=== PATIENT | male | born 1940 | race Caucasian/White ===

== ENCOUNTER → 2016-02-27 | Outpatient (CLI) | payer MEDICARE, BC ==
--- NOTE | 2016-02-27 13:07 | XR ---
Lumbar spine HISTORY: Back pain, M54.5 3 views of the lumbar spine. No comparisons Postop changes are noted in the lower lumbar spine, metallic fixation devices are present. Bone school examiner alization is reduced. Anterolisthesis grade 1 L4-5 with intervertebral spacing material. Loss of disc height greatest at L5-S1. Sclerosis present in the posterior elements compatible with facet arthropa thy. Multilevel spondylosis is present. Lumbar vertebral bodies show preserved height. There are vascular calcifications present in the aorta. IMPRESSION: Postop changes. Degenerative disc disease and facet arthropathy. Osteopenia.
== END | disposition home or self-care (01) ==
LOC: RADXRMAIN 10:32
DX: M51.36 Other intervertebral disc degeneration, lumbar region (principal); M46.96 Unspecified inflammatory spondylopathy, lumbar region; M85.88 Other specified disorders of bone density and structure, other site; Z98.890 Other specified postprocedural states
CPT/HCPCS: 72100

== ENCOUNTER → 2016-04-09 | Outpatient (CLI) | payer MEDICARE, BC ==
--- NOTE | 2016-04-10 10:16 | XR ---
EXAM TYPE: LUMBAR SPINE X RAY SERIES COMPARISON: 02/27/2016 HISTORY: Back pain TECHNIQUE: 3 views are submitted. FINDINGS: Postsurgical change appears stable. Hypertrophic changes and diffuse osteopenia noted. Grade 1 sera listhesis of L4 on L5 appears stable. Degenerative disc disease at all levels. IMPRESSION: 1. Stable postoperative change and grade 1 anterolisthesis L4 on L5. 2. Multilevel hypertrophic and degenerative changes.
== END ==
LOC: RADXRMAIN 15:49
DX: M43.16 Spondylolisthesis, lumbar region (principal); M47.816 Spondylosis without myelopathy or radiculopathy, lumbar region
CPT/HCPCS: 72100

== ENCOUNTER → 2016-05-22 | Outpatient (CLI) | payer MEDICARE, BC ==
--- NOTE | 2016-05-22 21:59 | XR ---
EXAM TYPE: LUMBAR SPINE X RAY SERIES COMPARISON: 04/09/2016 HISTORY: Pain TECHNIQUE: 7 views are submitted. Flexion and extension lateral views included. FINDINGS: Postsurgical change appears stable. Hypertrophic changes and diffuse osteopenia noted. Grade 1 sera listhesis of L4 on L5 appears stable. Degenerative disc disease at all levels. Orthopedic hardware seen posteriorly at L4 and L5 is stable in appearance should be correlated clinic ally. Degree of grade 1 anterolisthesis stable. No alteration upon flexion and extension. IMPRESSION: 1. Stable postoperative change and grade 1 anterolisthesis L4 on L5. Stable on flexion and extension. 2. Multilevel hypertrophic and degenerative changes.
== END ==
LOC: RADXRMAIN 17:44
DX: M43.16 Spondylolisthesis, lumbar region (principal); M47.816 Spondylosis without myelopathy or radiculopathy, lumbar region; Z98.890 Other specified postprocedural states
CPT/HCPCS: 72114

== ENCOUNTER → 2019-08-05 | Outpatient (CLI) | payer MEDICARE, BC ==
--- NOTE | 2019-08-05 14:35 | CT ---
EXAMINATION TYPE: CT lumbar spine wo con DATE OF EXAM: 08/05/2019 COMPARISON: Radiographs 05/22/2016 HISTORY: 79-year-old male Low back pain. TECHNIQUE: Contiguous axial scanning of the lumbar spine without IV contrast. Coronal and sagittal re constructions performed. CT DLP: 747.8 mGycm Automated exposure control for dose reduction was used. FINDINGS: Left lateral and interbody lumbar fusion at L4-L5. There is interbody ankylosis artery present at L5- S1. Lateral osseous fusion changes L4-S1 levels. There is posterior interspinous fusion at L3-L4 and additional posterior spinous fusion of L4-L5. Extruded 1 anterolisthesis at the fused L4-L5 level. Trace grade 1 retrolisthesis at L1-L2 with severe dissection of the degenerative change here, progres sed markedly from 05/22/2016. Scattered hypertrophic facet arthropathy. Posterior disc bulges also at L2-L3 and L3-L4. At L2-L3, there is mild overall narrowing of the spinal canal. At L1-L2, facet arthropathy with large disc osteophyte complex possibly causing a moderate spinal can al stenosis. Grade 1 retrolisthesis. On the right, this contributes to a severe spinal canal stenosis . Moderate multilevel neural foraminal stenoses are present. Vertebral body heights are preserved. Exophytic cortical lesion posterior left kidney measuring 2.0 cm is indeterminate, possible mildly co mplicated cyst. A 2.0 cm parapelvic cyst in left kidney. Postsurgical changes at the GE junction. Suspect chronic scarring at the posterior left base. Sigmoid diverticulosis. Some type of well-defined lobulated, peripherally calcified density in the anterior upper pelvis nicky uring 4.2 x 2.6 cm. Possible postinflammatory sequela or retained foreign body. Degenerative bridging ankylosis across the SI joints. IMPRESSION: 1. PRIOR LEFT LATERAL AND INTERBODY FUSION AT L4-L5 WELL POSTERIOR SPINOUS PROCESS FUSION FROM L3 THROUGH L5 LEVELS. MATURE LATERAL OSSEOUS FUSION FROM L4-S1 LEVELS. 2. FIXED GRADE 1 ANTEROLISTHESIS AT L4-L5. 3. ADVANCED DEGENERATIVE DISC DISEASE AT L1-L2, PROGRESSED FROM 2017 NOW WITH GRADE 1 RETROLISTHESIS AND POSSIBLE MODERATE SPINAL CANAL STENOSIS HERE. SEVERE RIGHT-SIDED NEURAL FORAMINAL STENOSIS AT THI S LEVEL. 4. POSTERIOR BULGING DISKS AT MULTIPLE LEVELS. THIS MILDLY NARROWS THE SPINAL CANAL AT L3-L4. 5. MODERATE MULTILEVEL NEUROFORAMINAL STENOSES. 6. SIGMOID DIVERTICULOSIS. A 4.2 X 2.6 CM WELL-DEFINED LOBULATED CALCIFIED DENSITY IN THE ANTERIOR UP PER PELVIS, POSSIBLE POSTINFLAMMATORY SEQUELA OR RETAINED FOREIGN BODY. CLINICALLY CORRELATE.
== END | disposition home or self-care (01) ==
LOC: RADCTMAIN 12:55
PROVIDERS: ATTEND Family Medicine
DX: M48.061 Spinal stenosis, lumbar region without neurogenic claudication (principal); M51.26 Other intervertebral disc displacement, lumbar region; M43.16 Spondylolisthesis, lumbar region; M51.36 Other intervertebral disc degeneration, lumbar region
CPT/HCPCS: 72131

== ENCOUNTER → 2019-09-08 | Outpatient (CLI) | payer MEDICARE, BC ==
--- NOTE | 2019-09-08 15:16 | MR ---
EXAMINATION TYPE: MR lumbar spine wo/w con DATE OF EXAM: 09/08/2019 COMPARISON: CT 08/05/2019, plain film 05/22/2016 HISTORY: LBP, lt side, radiates into both hips TECHNIQUE: Multiplanar, multisequence images of the lumbar spine were acquired utilizing [address] gadolinium contrast. L1-L2: Posterior extension endplate disc complex causes anterior mass effect on the thecal sac. Circu mferential extension endplate disc complex results in bilateral foraminal encroachment, is minimal re trolisthesis grade 1 at L1-2. L2-L3: Posterior broad-based disc bulge causes mild anterior mass effect on the thecal sac. No signif icant spinal stenosis or foraminal encroachment. L3-L4: Posterior broad-based disc bulge causes mild anterior mass effect on the thecal sac. Facet art hropathy with hypertrophy ligamentum flavum causes some posterior lateral mass effect on the thecal s ac. No significant spinal stenosis or foraminal encroachment. L4-L5: No disc herniation. There is spinal stenosis contributed by facet arthropathy with hypertrophy ligamentum flavum causing posterior lateral mass effect on the thecal sac. Listhesis contributes cau se foraminal encroachment. No disc herniation. L5-S1: No significant spinal stenosis or foraminal encroachment. No disc herniation. Posterior extens ion of endplate causes mild anterior mass effect on the thecal sac. Lumbar segments are intact. No paraspinal masses are identified. Conus medullaris has a normal appe arance. There is a mild spinal curvature. Postop changes status post lumbar fusion L4-5 causes suscep tibility artifact over portions of the exam. Posterior spinous process fusion L5 also noted. Loss of disc height is again noted L5-S1 with ankylosis as noted on CT, intervertebral spacing block present L4-5 with anterolisthesis grade 1. Probable cystic change present associated with the kidneys No abnormal enhancement following contrast administration. IMPRESSION: Postop changes, degenerative disc disease, facet arthropathy.
== END | disposition home or self-care (01) ==
LOC: RADMRIMAIN 12:33
PROVIDERS: ATTEND Physical Medicine & Rehabilitation
DX: M51.36 Other intervertebral disc degeneration, lumbar region (principal); M46.96 Unspecified inflammatory spondylopathy, lumbar region; Z98.890 Other specified postprocedural states
CPT/HCPCS: 72158; A9585

== ENCOUNTER → 2019-10-08 | Outpatient (CLI) | payer MEDICARE, BC ==
--- NOTE | 2019-10-09 07:49 | CT ---
EXAMINATION TYPE: CT abdomen pelvis w con DATE OF EXAM: 10/08/2019 COMPARISON: CT lumbar spine August 05, 2019. HISTORY: Left side flank pain and pelvic mass. CT DLP: 807.2 mGycm, Automated Exposure Control for Dose Reduction was Utilized. CONTRAST: CT scan of the abdomen and pelvis is performed with oral and with IV Contrast, patient injected with 80ml mL of Isovue 300. FINDINGS: LUNG BASES: Trace left pleural effusion with posterior left basilar consolidation and/or atelectasis. LIVER/GB: Intraluminal 6 mm gallstone near gallbladder neck axial image 22. Somewhat small hypodense liver. PANCREAS: [id number] generalized atrophy of the pancreas. More asymmetric heterogeneous promine nt of the head axial image 24. Hypodense vague 1.1 cm area suspicious for mass at this level. No duct al dilatation noted. SPLEEN: Prominent splenule splenic hilum axial image 23. ADRENALS: No significant abnormality is seen. KIDNEYS: Symmetric cortical medullary uptake and excretion with simple appearing central parapelvic c ysts in both kidneys and a few simple appearing small cysts bilaterally. BOWEL: Oral contrast only reaches proximal ileal level making evaluation of distal bowel slightly sub optimal. No suspicious small or large bowel dilatation. Wandering cecum into the anterior right upper to midabdomen there are axial image 26. Diverticula in the left and sigmoid colon. No CT evidence fo r acute diverticulitis PROSTATE/SEMINAL VESICLES: No gross abnormality seen. LYMPH NODES: No greater than 1cm abdominal or pelvic lymph nodes are appreciated. OSSEOUS STRUCTURES: Postsurgical change L4-L5 level. Marked disc space narrowing L5-S1 level. Some os sific fusion at these levels. Slight grade 1 anterolisthesis L4 on L5. Moderate to severe disc space narrowing with spurring and endplate sclerosis at the L1-L2 level. Posterior disc herniations and spu r disc complexes efface the anterior thecal sac L1-L2 through the L3-L4 levels. Moderate multilevel l ateral spurring in the visualized thoracic spine. Moderate narrowing of both hip joints OTHER: Small to moderate-sized fat-containing left inguinal hernia. Mild to moderate mixed plaque of the aorta extending into branch vessels. Corresponding to recent CT there is anterior rim calcified oval 3.4 x 2.0 cm lesion axial image 60 an d adjacent smaller round partially rim calcified 1.2 cm lesion at the level of the upper pelvis. Exte nding inferior to this there appears to be prominence of fat occupying the anterior aspect of the pel vis extending to right of midline seen best coronal image 41 displacing bladder posteriorly and small and large bowel loops out of the anterior pelvis. Few tiny thin vessels seen crossing through the le brant. IMPRESSION: 1. Large fat density lesion anterior pelvis possible lipomatosis or other benign etiology. Appears to have these rim calcified lesions along superior aspect. Etiology uncertain but favor benign etiology . Despite benign etiology significant mass effect on bowel loops and bladder are noted in the anterio r pelvis extending right of midline seen best on coronal images. 2. Of more concern is prominence and heterogeneous hypodense appearance at level of pancreatic head, solid or cystic mass cannot be excluded. No ductal dilatation is good sign to argue against obstructi ng adenocarcinoma. Advise further investigation with pancreatic protocol contrast enhanced MRI/MRCP t o better evaluate. Otherwise consider endoscopic ultrasound evaluation or follow-up.
== END | disposition home or self-care (01) ==
LOC: RADCTMAIN 14:55
PROVIDERS: ATTEND Family Medicine
DX: R19.09 Other intra-abdominal and pelvic swelling, mass and lump (principal); R19.00 Intra-abdominal and pelvic swelling, mass and lump, unspecified site
CPT/HCPCS: 82565; 84520; 74177; 36415; Q9967

== ENCOUNTER 2019-11-10 06:00 | Day surgery (SDC) | payer MEDICARE, BC ==
[2019-11-06 16:19] VITALS: BMI 25.8
[~2019-11-10 06:00] MED LIST: ACETAMINOPHEN TAB 500 MG TAB PO ONE; DEXAMETHASONE SOD PHOSPHATE 10 MG/ML 1 ML VIAL IV ONE; HEPARIN SODIUM,PORCINE 5,000 UNIT/ML 1 ML VIAL SQ ONE; LACTATED RINGERS 1,000 ML IV SCH; LIDOCAINE 1% (10MG/ML) FOR IV START INTRADERMA PRN; MIDAZOLAM 2 MG/2 ML VIAL IV PRN; ONDANSETRON 4 MG/2 ML VIAL IVP ONE
[2019-11-10] MEDS ORDERED: ePHEDrine SULFATE/0.9% NACL/PF 50 MG/5 ML SYRINGE IV ONE (07:47)
[2019-11-10] MEDS ORDERED: SUCCINYLCHOLINE CHLORIDE 100 MG/5 ML SYR IV ONE (07:47)
[2019-11-10] MEDS ORDERED: PROPOFOL 10 MG/ML 20 ML VIAL IV ONE (07:47)
[2019-11-10] MEDS ORDERED: ROCURONIUM BROMIDE 10 MG/ML 5 ML VIAL IV ONE (07:47)
[2019-11-10] MEDS ORDERED: GLYCOPYRROLATE 0.2 MG/ML 2 ML VIAL ONE (07:47)
[2019-11-10] MEDS ORDERED: NEOSTIGMINE 1 MG/ML 10 ML VIAL ONE (07:47)
[2019-11-10] MEDS ORDERED: LIDOCAINE 1% INJ 10MG/ML (20 ML MDV) ONE (07:47)
[2019-11-10] MEDS ORDERED: fentaNYL (PF) 50 MCG/ML 2 ML AMP ONE (07:47)
[2019-11-10] MEDS ORDERED: MIDAZOLAM 2 MG/2 ML VIAL ONE (07:47)
[2019-11-10] MEDS ORDERED: KETAMINE 10 MG/ML 20 ML VIAL ONE (07:47)
[2019-11-10] MEDS ORDERED: BUPIVACAINE (PF) 0.25% 30 ML VIAL SQ ONE ×2 (08:06)
[2019-11-10] MEDS ORDERED: ROPIVACAINE 5 MG/ML 30 ML VIAL MISCELLANE ONE (08:54)
--- NOTE | 2019-11-10 09:07 | P.GSHP ---
History of Present Illness H&P Date: 11/10/19 Chief Complaint: Umbilical hernia, possible intraperitoneal lipoma This a 79-year-old male who's had complaints of severe periumbilical pain. Patient's found have an incarcerated umbilical hernia. Patient a CAT scan performed which showed a 4 cm benign appearing calcified lipoma. Patient may have this excised today. Patient will undergo laparoscopic robotic system repair of incarcerated umbilical hernia. Past Medical History Past Medical History: Coronary Artery Disease (CAD), GERD/Reflux, Hyperlipidemia, Myocardial Infarction (SD), Osteoarthritis (OA) Additional Past Medical History / Comment(s): bruises easily. umbilical hernia. hx hepatitis late r/t drinking water Last Myocardial Infarction Date:: 2012 History of Any Multi-Drug Resistant Organisms: None Reported Past Surgical History: Back Surgery, Coronary Bypass/CABG, Heart Catheterization With Stent, Hernia Repair, Joint Replacement Additional Past Surgical History / Comment(s): triple bypass. 2 heart stents. lt knee replacement. spinal fusion,. 1/2 of stomach removed r/t ulcers Past Anesthesia/Blood Transfusion Reactions: No Reported Reaction Date of Last Stent Placement:: 2006 Smoking Status: Never smoker - Past Family History Mother Family Medical History: Cancer Additional Family Medical History / Comment(s): breast cancer Sister(s) Family Medical History: Cancer Additional Family Medical History / Comment(s): breast cancer Brother(s) Family Medical History: Cancer Additional Family Medical History / Comment(s): x2 prostate cancer Medications and Allergies Home Medications Medication Instructions Recorded Confirmed Type Aspirin [Adult Low Dose Aspirin EC] 81 mg PO DAILY 11/06/19 11/10/19 History Calcium Carbonate [Calcium] 600 mg PO DAILY 11/06/19 11/10/19 History Cholecalciferol [Vitamin D3 (25 2,000 unit PO DAILY 11/06/19 11/10/19 History Mcg = 1000 Iu)] Darifenacin Hydrobromide 7.5 mg PO DAILY 11/06/19 11/10/19 History [Darifenacin ER] Metoprolol Tartrate [Lopressor] 50 mg PO BID 11/06/19 11/10/19 History Cary-3 Acid Ethyl Esters [Lovaza] 1 gm PO BID 11/06/19 11/10/19 History Pantoprazole [Protonix] 40 mg PO DAILY 11/06/19 11/10/19 History Pravastatin Sodium [Pravachol] 40 mg PO HS 11/06/19 11/10/19 History amLODIPine [Norvasc] 5 mg PO DAILY 11/06/19 11/10/19 History Allergies Allergy/AdvReac Type Severity Reaction Status Date / Time atorvastatin [From Lipitor] Allergy legs Verified 11/10/19 06:23 soreness ibuprofen Allergy Unknown Verified 11/10/19 06:23 Surgical - Exam Vital Signs Temp Pulse Resp BP Pulse Ox 98.3 F 57 L 16 155/72 97 11/10/19 06:28 11/10/19 06:28 11/10/19 06:28 11/10/19 06:28 11/10/19 06:28 - General well developed, well nourished, no distress - Eyes PERRL - ENT normal pinna - Neck no masses - Respiratory normal expansion - Cardiovascular Rhythm: regular - Abdomen Abdomen: soft Hernia: umbilical (3 cm pressure umbilical hernia) Assessment and Plan Assessment: Incarcerated umbilical hernia Calcified intraperitoneal lipoma We'll perform laparoscopic robotic repair of incarcerated local hernia. If the patient's lipoma is easily accessible that he'll undergo excisional lipoma. I've explained the patient that he may require exploratory laparotomy to remove this at this time the lipoma will be observed
--- NOTE | 2019-11-10 09:13 | P.OP ---
Date of Procedure: 11/10/19 Preoperative Diagnosis: Incarcerated umbilical hernia Postoperative Diagnosis: Incarcerated umbilical hernia Procedure(s) Performed: Laparoscopic lysis of adhesions Laparoscopic repair of incarcerated incisional hernia Partial omentectomy Anesthesia: DEDIRE Surgeon: Bean Sethi Pathology: other (Omentum/hernia sac) Condition: stable Disposition: PACU Description of Procedure: The patient was placed on the operating table in the supine position. He received general anesthesia. His abdomen was prepped and draped usual fashion. Using a 5 mm optical trocar under direct visualization the peritoneal cavity was entered in the left upper quadrant. The abdomen was then insufflated. The laparoscope was placed back into the perineal cavity. Next a 8 mm robotic trocar was placed in the left lower quadrant and a 12 mm robotic trocar was placed in the left lateral position. The original 5 mm trocar was exchanged for a 8 mm robotic trocar. The patient's placed in the left side up position. And the patient was docked to the robot. The umbilical hernia was visualized. Using hook cautery the peritoneum over the incisional hernia was excised. The adhesions to the anterior wall were lysed with sharp dissection. The incarcerated omentum and hernia sac was dissected free using cautery and sent to pathology. The fascial opening was repaired using 0V LOC suture. Next a piece of 11 cm round ventral light ST mesh was placed into the. Cavity and secured with 2 OV lock suture. The laparoscope was then directed towards the pelvis. The small bowel loops were removed from the pelvis. The calcified lipoma could not be visualized. The patient was undocked the robot. The needles were retrieved. The fascia of the 12 mm trocar site was closed with 0 Ethibond suture. Skin was closed interrupted 3-0 Monocryl suture. Dermabond dressings was applied. Patient tolerated procedure well and was sent to recovery room stable condition.
[2019-11-10 09:26] VITALS: TEMP 97.1
[2019-11-10] MEDS: HYDROmorphone 0.5 MG/0.5 ML SYRINGE IVP PRN ×4 (09:28→09:49)
[2019-11-10] MEDS ORDERED: MEPERIDINE 50 MG/ML SYRINGE IVP ONE (09:59)
[2019-11-10 10:44] VITALS: RESP 16
[2019-11-10 11:44] VITALS: BP 136/74; PULSE 70
[2019-11-10] MEDS ORDERED: HYDROcodone/APAP 5-325MG 1 EACH TAB PO ONE (13:01)
[2019-11-10] MEDS ORDERED: HYDROcodone/APAP 5-325MG 1 EACH TAB ONE (13:03)
== END 2019-11-10 14:38 | disposition home or self-care (01) ==
LOC: OR 06:00
PROVIDERS: ATTEND Surgery
DX: K43.0 Incisional hernia with obstruction, without gangrene (principal); D17.79 Benign lipomatous neoplasm of other sites; I10 Essential (primary) hypertension; I25.10 Atherosclerotic heart disease of native coronary artery without angina pectoris; I25.2 Old myocardial infarction; M19.90 Unspecified osteoarthritis, unspecified site; E78.5 Hyperlipidemia, unspecified; K21.9 Gastro-esophageal reflux disease without esophagitis; Z88.6 Allergy status to analgesic agent; Z88.8 Allergy status to other drugs, medicaments and biological substances; Z95.1 Presence of aortocoronary bypass graft; Z79.899 Other long term (current) drug therapy; Z79.82 Long term (current) use of aspirin; Z95.5 Presence of coronary angioplasty implant and graft; Z86.19 Personal history of other infectious and parasitic diseases; Z98.890 Other specified postprocedural states; Z96.652 Presence of left artificial knee joint; Z98.1 Arthrodesis status; Z87.11 Personal history of peptic ulcer disease; Z80.3 Family history of malignant neoplasm of breast; Z80.42 Family history of malignant neoplasm of prostate
CPT/HCPCS: 88302; 49655; C1781; J2250; J1644; J1100; J2710; J2175; J0690; J2405; J2001; J3010; J2795; J0330; J2704; J1170

== ENCOUNTER → 2019-11-24 | Outpatient (CLI) | payer MEDICARE, BC ==
--- NOTE | 2019-11-24 13:04 | MR ---
EXAMINATION TYPE: MR MRCP DATE OF EXAM: 11/24/2019 COMPARISON: CT abdomen pelvis October 08, 2019 HISTORY: Abnormal CT scan in PACS Standard multiplanar, multisequence MRI departmental protocol Multiplanar, multisequence images of the abdomen were acquired. Diffusion weighted imaging was perfor med. MRCP three-dimensional [id number] images were obtained of the biliary tree. Please note the lack of contrast as evaluation and characterization of pancreatic lesions. FINDINGS: There is evidence of cholelithiasis. No evidence for wall thickening or pericholecystic flu id. Common bile duct measures approximately 4 mm. No evidence of intrahepatic biliary ductal dilatati on. Mild hepatic steatosis. No hepatic lesions seen. The pancreatic head there is a well-circumscribed cystic lesion measuring 1.1 cm. No additional pancr eatic lesions identified. Pancreatic duct measures less than 2 mm. The spleen is not enlarged. The adrenal glands are free of mass lesion. Renal cysts are seen bilatera lly. No evidence for adenopathy or aneurysm. IMPRESSION: 1. Uncomplicated cholelithiasis. 2. Fatty liver. 3. Well-circumscribed cystic lesion pancreatic head is nonspecific. Continued follow-up is advised.
== END | disposition home or self-care (01) ==
LOC: RADMRIMAIN 11:51
PROVIDERS: ATTEND Family Medicine
DX: K86.9 Disease of pancreas, unspecified (principal); K80.20 Calculus of gallbladder without cholecystitis without obstruction; K76.0 Fatty (change of) liver, not elsewhere classified; Z88.8 Allergy status to other drugs, medicaments and biological substances
CPT/HCPCS: 74181

== ENCOUNTER 2023-02-21 08:28 | Emergency (ER) | payer MEDICARE, BC ==
[2023-02-21 08:53] VITALS: BP 149/80; PULSE 69; RESP 18; TEMP 97
--- NOTE | 2023-02-21 09:00 | ED ---
General Adult HPI - General Chief complaint: Nausea/Vomiting/Diarrhea Stated complaint: Diarrhea Time Seen by Provider: 02/21/23 08:59 Source: patient, RN notes reviewed Mode of arrival: ambulatory Limitations: no limitations - History of Present Illness Initial comments: 82-year-old male presents emergency Department with chief complaint of abdominal issues. He states his been having back and forth diarrhea constipation. Patient states that he had diarrhea several states he is constipated today states is under current treatment for bladder CA with Dr. Acosta. Patient denies any fevers or chills he states he's had an obstruction in the past no chest pain or shortness breath no associated symptoms. - Related Data Home Medications Medication Instructions Recorded Confirmed Aspirin [Adult Low Dose Aspirin EC] 81 mg PO DAILY 11/06/19 11/10/19 Calcium Carbonate [Calcium] 600 mg PO DAILY 11/06/19 11/10/19 Cholecalciferol [Vitamin D3 (25 2,000 unit PO DAILY 11/06/19 11/10/19 Mcg = 1000 Iu)] Darifenacin Hydrobromide 7.5 mg PO DAILY 11/06/19 11/10/19 [Darifenacin ER] Metoprolol Tartrate [Lopressor] 50 mg PO BID 11/06/19 11/10/19 [place]-3 Acid Ethyl Esters [Lovaza] 1 gm PO BID 11/06/19 11/10/19 Pantoprazole [Protonix] 40 mg PO DAILY 11/06/19 11/10/19 Pravastatin Sodium [Pravachol] 40 mg PO HS 11/06/19 11/10/19 amLODIPine [Norvasc] 5 mg PO DAILY 11/06/19 11/10/19 Previous Rx's Medication Instructions Recorded Docusate [Colace] 100 mg PO BID #20 capsule 11/10/19 HYDROcodone/APAP 5-325MG [[place] 1 tab PO Q6HR PRN #10 tab 11/10/19 5-325] Nystatin 100,000Unit/gm Cream 1 applic TOPICAL BID #30 gram 02/21/23 [Mycostatin Cream] Allergies Allergy/AdvReac Type Severity Reaction Status Date / Time atorvastatin [From Lipitor] Allergy legs Verified 02/21/23 08:34 soreness ibuprofen Allergy Unknown Verified 02/21/23 08:34 Review of Systems ROS Statement: Those systems with pertinent positive or pertinent negative responses have been documented in the HPI. ROS Other: All systems not noted in ROS Statement are negative. Past Medical History Past Medical History: Coronary Artery Disease (CAD), Cancer, GERD/Reflux, Hyperlipidemia, Myocardial Infarction (TN), Osteoarthritis (OA) Additional Past Medical History / Comment(s): bruises easily. umbilical hernia. hx hepatitis late 's r/t drinking water. Bladder CA Last Myocardial Infarction Date:: 2012 History of Any Multi-Drug Resistant Organisms: None Reported Past Surgical History: Back Surgery, Coronary Bypass/CABG, Heart Catheterization With Stent, Hernia Repair, Joint Replacement Additional Past Surgical History / Comment(s): triple bypass. 2 heart stents. lt knee replacement. spinal fusion,. 1/2 of stomach removed r/t ulcers Past Anesthesia/Blood Transfusion Reactions: No Reported Reaction Date of Last Stent Placement:: 2006 Past Psychological History: No Psychological Hx Reported Smoking Status: Never smoker Past Alcohol Use History: None Reported Past Drug Use History: None Reported - Past Family History Mother Family Medical History: Cancer Additional Family Medical History / Comment(s): breast cancer Sister(s) Family Medical History: Cancer Additional Family Medical History / Comment(s): breast cancer Brother(s) Family Medical History: Cancer Additional Family Medical History / Comment(s): x2 prostate cancer General Exam - General Exam Comments Initial Comments: Visual Physical Exam Vital signs reviewed General: Well-appearing, nontoxic, no acute distress. Head: Normocephalic, atraumatic Eyes: PERRLA, EOMI ENT: Airway patent Chest: Nonlabored breathing Skin: No visual rash, normal skin tone Neuro: Alert and oriented 3 Musculoskeletal: No gross abnormalities Limitations: no limitations Course Vital Signs 02/21/23 08:31 Temperature 97 F L Pulse Rate 69 Respiratory 18 Rate Blood Pressure 149/80 O2 Sat by Pulse 99 Oximetry Medical Decision Making - Medical Decision Making I completed the quick note portion of this chart signed Rafael Schumacher PA-C Was pt. sent in by a medical professional or institution (TARAH Mckinley, BUTTON INSPECTOR, urgent care, hospital, or residential...) When possible be specific @ -No Did you speak to anyone other than the patient for history (EMS, parent, family, police, friend...)? What history was obtained from this source @ -No Did you review nursing and triage notes (agree or disagree)? Why? @ -I reviewed and agree with nursing and triage notes Were old charts reviewed (outside hosp., previous admission, EMS record, old EKG, old radiological studies, urgent care reports/EKG's, residential records)? Report findings @ -No old charts were reviewed Differential Diagnosis (chest pain, altered mental status, abdominal pain women, abdominal pain men, vaginal bleeding, weakness, fever, dyspnea, syncope, headache, dizziness, GI bleed, back pain, seizure, CVA, palpatations, mental health, musculoskeletal)? @ -Differential Abdominal Pain Men: Appendicitis, cholecystitis, diverticulosis, ischemic bowel, pancreatitis, hepatitis, UTI, gastroenteritis, AAA, incarcerated hernia, bowel obstruction, constipation, inflammatory bowel, hepatitis, peptic ulcer disease, splenic infarction, perforated viscus, testicular torsion, this is not meant to be an all-inclusive list EKG interpreted by me (3pts min.). @ -None X-rays interpreted by me (1pt min.). @ -X-ray KUB is nonspecific bowel gas pattern CT interpreted by me (1pt min.). @ -CT of abdomen and pelvis showing no evidence of perforation, infection or bowel obstruction U/S interpreted by me (1pt. min.). @ -None done What testing was considered but not performed or refused? (CT, X-rays, U/S, labs)? Why? @ -None What meds were considered but not given or refused? Why? @ -None Did you discuss the management of the patient with other professionals (professionals i.e. , PA, BUTTON INSPECTOR, lab, RT, psych nurse, social science analyst, signal operator linguist, teacher, quarantine officer, nurse case management)? Give summary @ -No Was smoking cessation discussed for >3mins.? @ -No Was critical care preformed (if so, how long)? @ -No Were there social determinants of health that impacted care today? How? (Homelessness, low income, unemployed, alcoholism, drug addiction, transportation, low edu. Level, literacy, decrease access to med. care, alf, rehab)? @ -No Was there de-escalation of care discussed even if they declined (Discuss DNR or withdrawal of care, Hospice)? DNR status @ -No What co-morbidities impacted this encounter? (DM, HTN, Smoking, COPD, CAD, Cancer, CVA, ARF, Chemo, Hep., AIDS, mental health diagnosis, sleep apnea, morbid obesity)? @ -None Was patient admitted / discharged? Hospital course, mention meds given and route, prescriptions, significant lab abnormalities, going to OR and other pertinent info. @ -Discharge patient had CT, laboratory studies, imaging revealed no acute process no severe constipation. Patient is discharged in stable condition Undiagnosed new problem with uncertain prognosis? @ -No Drug Therapy requiring intensive monitoring for toxicity (Heparin, Nitro, Insulin, Cardizem)? @ -No Were any procedures done? @ -No Diagnosis/symptom? @ -[Abdominal pain Acute, or Chronic, or Acute on Chronic? @ -Acute Uncomplicated (without systemic symptoms) or Complicated (systemic symptoms)? @ -[Uncomplicated Side effects of treatment? @ -No Exacerbation, Progression, or Severe Exacerbation? @ -No Poses a threat to life or bodily function? How? (Chest pain, [place], [place], pneumonia, PE, COPD, DKA, ARF, appy, cholecystitis, CVA, Diverticulitis, Homicidal, Suicidal, threat to staff... and all critical care pts) @ -No - Lab Data Result diagrams: 02/21/23 09:34 02/21/23 09:34 Lab Results 02/21/23 02/21/23 Range/Units 09:34 09:34 WBC 5.8 (3.8-10.6) k/uL RBC 3.82 L (4.30-5.90) m/uL Hgb 12.9 L (13.0-17.5) gm/dL Hct 38.1 L (39.0-53.0) % MCV 99.7 (80.0-100.0) fL MCH 33.7 (25.0-35.0) pg MCHC 33.8 (31.0-37.0) g/dL RDW 12.2 (11.5-15.5) % Plt Count 167 (150-450) k/uL MPV 9.2 Neutrophils % 75 % Lymphocytes % 15 % Monocytes % 6 % Eosinophils % 1 % Basophils % 0 % Neutrophils # 4.3 (1.3-7.7) k/uL Lymphocytes # 0.9 L (1.0-4.8) k/uL Monocytes # 0.3 (0-1.0) k/uL Eosinophils # 0.1 (0-0.7) k/uL Basophils # 0.0 (0-0.2) k/uL Sodium 141 (137-145) mmol/L Potassium 4.3 (3.5-5.1) mmol/L Chloride 106 (98-107) mmol/L Carbon Dioxide 26 (22-30) mmol/L Anion Gap 9 mmol/L BUN 25 H (9-20) mg/dL Creatinine 0.90 (0.66-1.25) mg/dL Est GFR (CKD-EPI)AfAm >90 (>60 ml/min/1.73 sqM) Est GFR (CKD-EPI)NonAf 80 (>60 ml/min/1.73 sqM) Glucose 160 H (74-99) mg/dL Calcium 9.4 (8.4-10.2) mg/dL Total Bilirubin 1.5 H (0.2-1.3) mg/dL AST 35 (17-59) U/L ALT 33 (4-49) U/L Alkaline Phosphatase 84 (38-126) U/L Total Protein 6.9 (6.3-8.2) g/dL Albumin 4.0 (3.5-5.0) g/dL Lipase 36 (23-300) U/L Disposition Clinical Impression: Abdominal pain, Tinea cruris Disposition: HOME SELF-CARE Condition: Stable Instructions (If sedation given, give patient instructions): Abdominal Pain (ED) Additional Instructions: Please return to the Emergency Department if symptoms worsen or any other concerns. Prescriptions: Nystatin 100,000Unit/gm Cream [Mycostatin Cream] 1 applic TOPICAL BID #30 gram Is patient prescribed a controlled substance at d/c from ED?: No Referrals: Nonstaff,Physician [Primary Care Provider] - 1-2 days Time of Disposition: 12:59
[2023-02-21 09:49] LABS: Basophils % (A) 0 %; Eosinophils # (A) 0.1 k/uL (0-0.7); Eosinophils % (A) 1 %; HCT 38.1 % (39.0-53.0); HGB 12.9 gm/dL (13.0-17.5); Lymphocytes # (A) 0.9 k/uL (1.0-4.8); Lymphocytes % (A) 15 %; MCH 33.7 pg (25.0-35.0); MCHC 33.8 g/dL (31.0-37.0); MCV 99.7 fL (80.0-100.0); Mean Platelet Volume 9.2; Monocytes # (A) 0.3 k/uL (0-1.0); Monocytes % (A) 6 %; Neutrophils # (A) 4.3 k/uL (1.3-7.7); Neutrophils % (A) 75 %; Platelet Count 167 k/uL (150-450); RBC 3.82 m/uL (4.30-5.90); RDW 12.2 % (11.5-15.5); WBC 5.8 k/uL (3.8-10.6)
[2023-02-21 10:04] LABS: ALT 33 U/L (4-49); African American GFR (CKD) >90 (>60 ml/min/1.73 sqM); Anion Gap 9 mmol/L; Blood Urea Nitrogen 25 mg/dL (9-20); Calcium 9.4 mg/dL (8.4-10.2); Carbon Dioxide 26 mmol/L (22-30); Chloride 106 mmol/L (98-107); Glucose 160 mg/dL (74-99); Lipase 36 U/L (23-300); Non-African American GFR(CKD) 80 (>60 ml/min/1.73 sqM); Sodium 141 mmol/L (137-145); Total Bilirubin 1.5 mg/dL (0.2-1.3); Total Protein 6.9 g/dL (6.3-8.2)
[2023-02-21 10:13] LABS: AST 35 U/L (17-59); Alkaline Phosphatase 84 U/L (38-126); Potassium 4.3 mmol/L (3.5-5.1)
--- NOTE | 2023-02-21 11:47 | XR ---
EXAMINATION TYPE: XR KUB DATE OF EXAM: 02/21/2023 Comparison: CT 10/08/2019 Clinical History: 82-year-old male pain Findings: Intraspinous posterior lumbar fusion. Additional left lateral lumbar fusion L4-L5. The axial calcific ation in the left paramedian pelvis likely some chronic postinflammatory etiology when correlating wi th prior CT, stable back to 2019. Phlebolith right side of the pelvis. Splenic artery calcifications. Surgical material GE junction and left upper quadrant region. Nonobstructive bowel gas pattern. No s ignificant stool reported. No dilated small bowel. No evidence for free intraperitoneal air. Impression: Nonspecific, nonobstructive bowel gas pattern. No evidence for free air. No significant stool burden.
--- NOTE | 2023-02-21 12:42 | CT ---
EXAMINATION TYPE: CT abdomen pelvis wo con CT DLP: 465.1 mGycm, Automated exposure control for dose reduction was used. DATE OF EXAM: 02/21/2023 10:22 AM COMPARISON: Remote CT abdomen pelvis 10/05/2019 CLINICAL INDICATION:Male, 82 years old with history of pain; left flank pain TECHNIQUE: Axial CT of the abdomen and pelvis. Sagittal and coronal reformats were created on a 5 Minutes workstation. Contrast used: mL of , (none if empty) Oral contrast used: without Oral Contrast (none if empty) FINDINGS: Exam is limited without contrast. LOWER CHEST: Unchanged slightly ovoid subpleural opacity in the left lung base posteriorly with whorl ed margins, consistent with round atelectasis. No acute infiltrate. The heart is mildly to moderately enlarged. Poor visualization of the interventricular septum, can be seen with anemia. Partially seen moderate coronary calcifications and/or stents. ABDOMEN LIVER: Unremarkable GALLBLADDER AND BILE DUCTS: r calcified 1 cm gallstone. No gallbladder distention or inflammation delmer ntified. Biliary tree is nondilated. PANCREAS: Mildly atrophic without acute finding. SPLEEN: Unremarkable. ADRENAL GLANDS: Normal right adrenal. Left adrenal is mildly thickened and nodular, likely due to hyp erplasia or adenomatoid changes.. KIDNEYS AND URETERS: Right kidney shows a vague 2 cm rounded hypodense area in its midportion which i s not fully characterized but has the appearance of a cyst. The right renal pelvis is mildly prominen t without dilated ureter seen. Suspect small parapelvic cysts. No right renal/ureteral calculi. Left kidney shows a rounded exophytic 2.6 cm nodule extending posteromedially from the mid upper pole with internal attenuation about 14-15 Hounsfield units, probably a slightly hyperdense cyst. Punctate sallie culus at the periphery of the renal sinus in the mid kidney. No definite hydronephrosis, and the ure ter does not appear dilated. There are likely some parapelvic cysts. Artifact from spinal hardware li mits assessment but there are no definite ureteral calculi or dilated ureters seen continuing distall y. PELVIS BLADDER: Incompletely distended but demonstrates no calculi. REPRODUCTIVE: Prostate is mildly prominent measuring 4.4 cm transverse, contains a few parenchymal ca lcifications. Pelvic phleboliths are present. Relatively large 8.6 mm rounded calcification outside the bladder posteriorly on the right was present previously, may also be a phlebolith or a calcified granuloma. ABDOMEN & PELVIS STOMACH AND BOWEL: Postoperative changes in the region of the GE junction and upper abdomen anteriorl y. Stomach and small bowel do not appear dilated. Appendix is not identified with certainty, however there is no inflammatory process seen in the RLQ. Cecum appears somewhat high riding in the mid abdo men. There is moderate stool throughout the colon. There are redundant segments and some segments are nondistended limiting their evaluation. No definite acute colonic abnormality. There are numerous si gmoid region diverticula without evidence of diverticulitis. PERITONEUM/RETROPERITONEUM: No evidence of pneumoperitoneum or free fluid. Ovoid and rounded rim calcified lesions in the anterior pelvis images 101-103 appear stable. The larg er is 35 x 21 mm and the smaller is 12 mm. Inferior to these lesions there is again prominent masslik e fat collection within the anterior aspect of the pelvis extending to the right more than left and d isplacing the bladder posteriorly and small and large bowel loops out of the anterior pelvis. Few tin y thin vessels are seen crossing through the lesion. Overall appearance is stable from prior. VASCULATURE: Moderate atherosclerotic calcifications are present throughout the abdominal aorta and i ts branches. No evidence of aortic aneurysm. LYMPH NODES: No gross evidence for lymphadenopathy. SOFT TISSUE/ABDOMINAL WALL: Stable moderate sized fat-containing left inguinal hernia, and small shazia ia on the right. OSSEOUS STRUCTURES: No acute osseous abnormalities. Postop changes L4-L5 with disc space prosthetic device and grade 1 anterolisthesis of L4-L5, similar to previous. Relatively advanced degenerative disc disease L1-L2 and L5-S1 appears similar to before. This base osteophytes L1-L2 again cause severe right and moderate to severe left neural foraminal st enosis and moderate canal stenosis. Deformities of the right L2, L4 transverse processes suggestive o f old healed fractures. Lucency with cortication suggests nonhealed fracture of the right transverse process at L3. Degenerative change of the SI joints with near complete bony fusion bilaterally. A few remote left inferior rib fracture deformities. Partially seen sternotomy wires. Moderate bilate ral hip arthropathy. IMPRESSION: 1. Punctate left renal calculus. 2. No evidence of ureteral calculi or hydronephrosis. 3. Mild prostatomegaly. 4. Stable large fatty lesion within the anterior pelvis, likely lipoma/lipomatosis.
== END 2023-02-21 13:12 | disposition home or self-care (01) ==
LOC: EC 08:28
DX: B35.6 Tinea cruris (principal); N20.0 Calculus of kidney
CPT/HCPCS: 36415; 74018; 74176; 80053; 83690; 85025; 99284

== ENCOUNTER 2023-04-09 09:22 | Day surgery (SDC) | payer MEDICARE, BC ==
[2023-04-09] MEDS: LACTATED RINGERS 1,000 ML IV SCH (10:27)
[2023-04-09 10:43] LABS: Glucose,Whole Blood 95 mg/dL (70-110)
[2023-04-09 10:48] VITALS: RESP 16; TEMP 98.6
[2023-04-09] MEDS ORDERED: PROPOFOL 10 MG/ML 20 ML VIAL IV ONE (11:03)
[2023-04-09] MEDS ORDERED: LIDOCAINE 1% INJ 10MG/ML (20 ML MDV) ONE (11:03)
--- NOTE | 2023-04-09 11:27 | P.PCN ---
Date of Procedure: 04/09/23 Procedure(s) Performed: BRIEF HISTORY: Patient is a a 82-year-old pleasant white male scheduled for an elective colonoscopy as a part of evaluation of change in bowel habits for the last several months duration. PROCEDURE PERFORMED: Colonoscopy with random biopsies. PREOPERATIVE DIAGNOSIS: Change in bowel habits. IV sedation per Anesthesia. PROCEDURE: After informed consent was obtained, the patient, was brought into the endoscopy unit. IV sedation was administered by Anesthesia under continuous monitoring. Digital rectal examination was normal. Initially the Olympus CF-160 flexible video colonoscope was then inserted in the rectum, gradually advanced into the cecum without any difficulty. Careful examination was performed as the scope was gradually being withdrawn. Ileocecal valve and the appendiceal orifice were visualized and appeared normal. Prep was excellent. Mucosa of the cecum, ascending colon, transverse colon, descending colon, sigmoid colon, and rectum appeared normal. Scattered sigmoid diverticulosis. Random biopsies were done from ascending and descending colon to rule out microscopic/collagenous colitis. Retroflexion was performed in the rectum and small internal hemorrhoids were seen. The patient tolerated the procedure well. IMPRESSION: Normal-appearing colon from rectum to cecum with no evidence of colorectal neoplasia. Scattered left-sided diverticulosis small internal hemorrhoids . RECOMMENDATIONS: Findings of this examination were discussed with the patientas well as his family. He was advised to follow with the biopsy results and follow-up in the office in 3-4 weeks.].
[2023-04-09 12:26] VITALS: BP 121/58; PULSE 74
== END 2023-04-09 12:38 | disposition home or self-care (01) ==
LOC: ORWHC2ENDO 09:22
PROVIDERS: ATTEND Internal Medicine Gastroenterology
DX: K57.30 Diverticulosis of large intestine without perforation or abscess without bleeding (principal); K64.8 Other hemorrhoids; I10 Essential (primary) hypertension; I25.10 Atherosclerotic heart disease of native coronary artery without angina pectoris; E78.5 Hyperlipidemia, unspecified; K21.9 Gastro-esophageal reflux disease without esophagitis; M19.90 Unspecified osteoarthritis, unspecified site; Z86.73 Personal history of transient ischemic attack (TIA), and cerebral infarction without residual deficits; Z79.82 Long term (current) use of aspirin; Z79.899 Other long term (current) drug therapy; Z95.5 Presence of coronary angioplasty implant and graft; Z98.890 Other specified postprocedural states
CPT/HCPCS: 88305; 45380; J2001; J2704

== ENCOUNTER → 2023-06-10 | Outpatient (CLI) | payer MEDICARE, BC ==
--- NOTE | 2023-06-11 08:44 | MR ---
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 IV Contrast: 6.5 cc Gadavist. None. FINDINGS: Alignment: The thoracic and lumbar vertebral bodies have preserved heights with mildly increased kyph osis of the thoracic spine due to T8 vertebral body wedging. Cord: The conus medullaris and the distal spinal cord appear unremarkable with regards to their signa l intensity and morphology. No abnormal postcontrast enhancement. Bones/Discs: Multilevel degenerative disc disease is noted and most pronounced at the T8 with superio r endplate Schmorl's node and mild wedging with 25% height loss. No abnormal inversion recovery signa l within the thoracic spine. There is severe degeneration changes throughout the lumbar spine with fi xation hardware present. L4-L5 discectomy changes with posterior fixation changes at L4-L5 also prese nt. There is Modic endplate changes most pronounced at L1-L2 adjoining endplates. THORACIC: No evidence significant spinal canal or neural foraminal stenosis. Spinal cord is within no rmal limits. LUMBAR: T12-L1: No evidence of significant spinal canal stenosis or neural foraminal stenosis. L1-L2: Disc bulge and facet joint arthropathy result in mild spinal canal and severe bilateral neural foraminal stenosis. L2-L3: Disc bulge and facet joint arthropathy result in mild spinal canal and severe right and modera te to severe left neural foraminal stenosis. L3-L4: Disc bulge and facet joint arthropathy result in mild spinal canal and severe right and modera te to severe left neural foraminal stenosis. L4-L5: Discectomy changes with facet joint arthropathy with mild spinal canal stenosis. Moderate to s evere bilateral neural foraminal stenosis secondary to facet joint arthropathy. L5-S1: The disc is rounded posterior morphology without significant spinal canal stenosis. Facet join t arthropathy with moderate bilateral neural foraminal stenosis. Other findings: High T2 signal left renal cortical and bilateral renal peripelvic cysts. IMPRESSION: 1. No definitive evidence of significant spinal canal stenosis. No abnormal postcontrast enhancement . 2. Postsurgical changes to the lumbar spine. 3. Severe degeneration changes worse in the lumbar spine with multilevel neural foraminal stenosis. S evere neural foraminal stenosis at L2-L3 and L3-L4 on the right with moderate to severe on the left a t these levels. Additionally there is moderate to severe bilateral L4-L5 and moderate bilateral L5-S1 neural foraminal stenosis.
== END | disposition home or self-care (01) ==
LOC: RADMRIMAIN 16:26
PROVIDERS: ATTEND Physical Medicine & Rehabilitation
DX: M51.36 Other intervertebral disc degeneration, lumbar region (principal); M47.817 Spondylosis without myelopathy or radiculopathy, lumbosacral region; M99.73 Connective tissue and disc stenosis of intervertebral foramina of lumbar region; M96.1 Postlaminectomy syndrome, not elsewhere classified; M41.26 Other idiopathic scoliosis, lumbar region; M51.17 Intervertebral disc disorders with radiculopathy, lumbosacral region
CPT/HCPCS: 72157; 72158; A9585